=== PATIENT | male | born 1970 | race Caucasian/White ===

== ENCOUNTER 2017-04-06 17:07 | Emergency (ER) | payer OTHER ==
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
[2017-04-06] MEDS ORDERED: fentaNYL 100 MCG/2 ML INJ IVP ONE ×2 (17:20→18:31)
[2017-04-06] MEDS ORDERED: ONDANSETRON 4 MG/2 ML VIAL IVP ONE (17:20)
[2017-04-06] MEDS ORDERED: DIAZEPAM 10 MG/2 ML SYR IVP ONE ×2 (18:31→19:29)
[2017-04-06] MEDS ORDERED: NS 1,000 ML IV ONE (18:59)
[2017-04-06 20:02] VITALS: RESP 16
[2017-04-06] MEDS ORDERED: HYDROmorphONE/DILAUDID 1 MG/ML SYR IVP ONE (20:25)
[2017-04-06] MEDS ORDERED: HYDROCOD/APAP 5/325 PREPACK#6 BTL TAKEHOME ONE (20:41)
[2017-04-06 20:55] VITALS: BP 109/57; PULSE 60; TEMP 98.6; O2SAT 97
== END 2017-04-06 20:54 | disposition home or self-care (01) ==
DX: S39.92XA Unspecified injury of lower back, initial encounter (principal); V11.9XXA Unspecified pedal cyclist injured in collision with other pedal cycle in traffic accident, initial encounter; Y92.410 Unspecified street and highway as the place of occurrence of the external cause; Y99.0 Civilian activity done for income or pay; Y93.89 Activity, other specified
CPT/HCPCS: 96374; J1170; J2405; J3010